=== PATIENT | male | born 1960 | race Caucasian/White ===

== ENCOUNTER 2024-12-16 17:26 | Emergency (ER) | payer MEDICARE, OTHER ==
[~2024-12-16] VITALS: Ht 177.8 cm; Wt 115.0 kg
[~2024-12-16 17:26] MED LIST: UNRESOLVED CLARIFICATION ENTRY XX SCH
[2024-12-16] MEDS ORDERED: FINA5TAB2 (17:54)
[2024-12-16] MEDS ORDERED: IRBE300T25 (17:54)
[2024-12-16] MEDS ORDERED: XARE20TA (17:54)
[2024-12-16] MEDS ORDERED: EZET10TA21 (17:54)
[2024-12-16] MEDS ORDERED: LANS30CA93 (17:54)
[2024-12-16] MEDS ORDERED: CARV6.25 (17:54)
[2024-12-16] MEDS ORDERED: SEMA7TAB2 (17:54)
[2024-12-16] MEDS ORDERED: MELO15TA28 (17:54)
[2024-12-16] MEDS ORDERED: FURO40TA2 (17:54)
[2024-12-16 19:00] LABS: BASO # 0.1 10^3/uL (0.0-0.2); BASO % 0.4 % (0.0-1.0); EOS # 0.1 10^3/uL (0.0-0.5); EOS % 0.4 % (0.0-3.0); HEMATOCRIT 48.1 % (42.0-52.0); HEMOGLOBIN 16.8 g/dl (13.5-17.5); LYMPH # 1.3 10^3/uL (1.5-5.0); LYMPH % 11.1 % (24.0-44.0); MEAN CORPUSCULAR HEMOGLOBIN 31.2 pg (27.0-33.0); MEAN CORPUSCULAR HGB CONC 34.9 g/dl (32.0-36.5); MEAN CORPUSCULAR VOLUME 89.4 fl (80.0-96.0); MONO % 8.6 % (2.0-8.0); NEUTROPHILS # 9.1 10^3/uL (1.5-8.5); NEUTROPHILS % 79.2 % (36.0-66.0); PLATELET COUNT, AUTOMATED 264 10^3/uL (150-450); RED BLOOD COUNT 5.38 10^6/uL (4.30-6.10); WHITE BLOOD COUNT 11.5 10^3/uL (4.0-10.0)
[2024-12-16 19:23] LABS: ALBUMIN 3.7 G/DL (3.2-5.2); BILIRUBIN,DIRECT 0.2 MG/DL (<0.4); BILIRUBIN,TOTAL 0.7 MG/DL (0.3-1.2); TOTAL PROTEIN 6.8 G/DL (5.7-8.2)
[2024-12-16] MEDS: ACETAMINOPHEN *IV* 1,000 MG in IV 1 EA IV ONE (19:33)
[2024-12-16 19:55] LABS: KETONE, URINE AUTO RFX NEGATIVE (NEGATIVE); MUCUS, URINE RFX SMALL (NEGATIVE); RBC, URINE AUTO RFX 2 /HPF (0-3); SQUAM EPITHELIAL CELL UR AURFX 2 /HPF (0-6)
[2024-12-16 19:57] LABS: LEUKOCYTE ESTERASE UR AUTO RFX 3+ (NEGATIVE); NITRITE, URINE AUTO RFX POSITIVE (NEGATIVE); WBC, URINE AUTO RFX 24 /HPF (0-3)
[2024-12-16] MEDS ORDERED: CEFD300C PO (20:40)
[2024-12-16] MEDS ORDERED: ONDA-282 PO (20:40)
[2024-12-16 20:47] VITALS: BP 168/92; TEMP 98.7; O2SAT 98
[2024-12-16] MEDS: CEFDINIR 300 MG CAP PO ONE (20:50)
== END 2024-12-16 20:54 | disposition home or self-care (01) ==
LOC: M ED 17:26
DX: N39.0 Urinary tract infection, site not specified (principal); K80.50 Calculus of bile duct without cholangitis or cholecystitis without obstruction; E11.9 Type 2 diabetes mellitus without complications; I10 Essential (primary) hypertension; Z86.711 Personal history of pulmonary embolism; Z86.718 Personal history of other venous thrombosis and embolism; Z79.2 Long term (current) use of antibiotics; Z79.899 Other long term (current) drug therapy; Z79.83 Long term (current) use of bisphosphonates
CPT/HCPCS: 80047; 80076; 81001; 83690; 85025; 87088; 87186; 96365; 99284; J0131

== ENCOUNTER 2025-04-28 09:03 | Day surgery (SDC) | payer MEDICARE, OTHER ==
[~2025-04-28] VITALS: Ht 177.8 cm; Wt 118.8 kg
[~2025-04-28 09:03] MED LIST changes: +CARV6.25 PO; +CEFD300C PO; +EZET10TA57 PO; +FINA5TAB2 PO; +FURO40TA2 PO; +IRBE300T25 PO; +KETOROLAC 30 MG/ML 1 ML VIAL As Ordered ONE; +LANS30CA93 PO; +LIDOCAINE 2% 100 MG/5 ML SDV (FOR ANES.) As Ordered ONE; +LR 1,000 ML IV SCH; +MELO15TA28 PO; +ONDA-282 PO; +ONDANSETRON 4MG 2ML VIAL As Ordered ONE; +ROCURONIUM BROMIDE 50MG/5ML VIAL As Ordered ONE; +SEMA7TAB2 PO; +SUGAMMADEX SODIUM 500 MG/5 ML VIAL As Ordered ONE; -UNRESOLVED CLARIFICATION ENTRY XX SCH; +XARE20TA PO; +dexAMETHasone 4 MG/ML 1 ML VIAL As Ordered ONE
[2025-04-28] MEDS ORDERED: MIDAZOLAM INJ 2 MG/2 ML VIAL As Ordered ONE (09:51)
[2025-04-28] MEDS: ceFAZolin SOD 2 GM IV ONCE IV ONE (11:03)
[2025-04-28] MEDS ORDERED: ACETAMINOPHEN 1000MG/100ML IV BAG As Ordered ONE (11:07)
[2025-04-28] MEDS ORDERED: LR 1,000 ML IV SCH (12:30)
[2025-04-28] MEDS ORDERED: ONDANSETRON 4MG 2ML VIAL IV PRN (12:30)
[2025-04-28] MEDS ORDERED: HYDROMORPHONE HCL 0.5 MG/0.5 ML SYRINGE IV PRN (12:30)
[2025-04-28] MEDS ORDERED: NS (Normal Saline) 0.9% 1,000 ML IV SCH (13:40)
[2025-04-28] MEDS ORDERED: traMADol 50 MG TAB PO PRN (13:40)
[2025-04-28 14:08] VITALS: BP 158/82; TEMP 96.8; O2SAT 93
== END 2025-04-28 14:12 | disposition home or self-care (01) ==
LOC: M SDC 09:03
PROVIDERS: ATTEND Surgery
DX: K80.10 Calculus of gallbladder with chronic cholecystitis without obstruction (principal); E11.9 Type 2 diabetes mellitus without complications; J44.9 Chronic obstructive pulmonary disease, unspecified; I10 Essential (primary) hypertension; D68.51 Activated protein C resistance; E78.00 Pure hypercholesterolemia, unspecified; Z79.899 Other long term (current) drug therapy; Z79.01 Long term (current) use of anticoagulants; Z86.711 Personal history of pulmonary embolism; Z86.16 Personal history of COVID-19; K21.9 Gastro-esophageal reflux disease without esophagitis
CPT/HCPCS: 47562; 88304; J0131; J0665; J0688; J1100; J1885; J2250; J2405; J3010